=== PATIENT | male | born 1990 | race African-American/Black ===

== ENCOUNTER 2021-03-07 18:58 | Emergency (ER) | payer SELFPAY ==
[~2021-03-07] VITALS: Ht 185.4 cm; Wt 89.3 kg
[2021-03-07 19:10] VITALS: BP 124/69
[2021-03-07] MEDS ORDERED: AMOX500C PO (19:48)
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
[2021-03-07] MEDS ORDERED: AMOXICILLIN 250 MG CAPSULE PO ONE (20:30)
[2021-03-07] MEDS ORDERED: IBUPROFEN 600 MG TABLET. PO ONE (20:30)
== END 2021-03-07 20:10 | disposition home or self-care (01) ==
LOC: ER 18:58
DX: H66.91 Otitis media, unspecified, right ear (principal)
CPT/HCPCS: 99283-25